=== PATIENT | female | born 1990 | race Two or more races ===

== ENCOUNTER 2018-10-03 16:48 | Emergency (ER) | payer SELFPAY ==
[~2018-10-03] VITALS: Ht 167.6 cm; Wt 53.5 kg
[2018-10-03] MEDS ORDERED: Tetanus/Diptheria/Pertussis IM ONE (17:15)
[2018-10-03] MEDS ORDERED: LET 3ml Soln TOPIC ONE (17:15)
[2018-10-03] MEDS ORDERED: Bacitracin Oint UD TOPIC ONE (17:15)
--- NOTE | 2018-10-03 17:18 | Emergency Room Report ---
History of Present Illness General Chief Complaint: Laceration Source: Patient Present Illness HPI 28-year-old female patient presents the ER complaining of laceration on left ankle. Reports that she was shaving 4 days ago and "cut her skin". Reports bleeding at the time of injury. States well controlled Band-Aid at this time. Reports is not up-to-date on tetanus vaccination. Reports has not used any topical antibiotics. Denies pain with walking. Denies other aggravating or relieving factors. Allergies: Coded Allergies: No Known Allergies (Unverified , 10/03/18) Patient History Past Medical History: see triage record Last Menstrual Period: 09/04/18 Reviewed Nursing Documentation: PMH: Agreed; PSxH: Agreed Nursing Documentation-PMH Past Medical History: No Stated History Review of Systems All Other Systems: negative except mentioned in HPI Physical Exam Vital Signs Date Time Temp Pulse Resp B/P (MAP) Pulse Ox O2 Delivery O2 Flow Rate FiO2 10/03/18 16:56 98.2 91 18 99/72 98 Room Air Sp02 EP Interpretation: reviewed, normal General Appearance: well appearing, no apparent distress, alert, GCS 15, non- toxic Head: normocephalic, atraumatic Eyes: bilateral eye normal inspection, bilateral eye PERRL ENT: hearing grossly normal, normal pharynx, no angioedema, normal voice, uvula midline, moist mucus membranes Respiratory: lungs clear, normal breath sounds, no rhonchi, no respiratory distress, no accessory muscle use, no wheezing, speaking full sentences Cardiovascular #1: regular rate, rhythm, no edema Cardiovascular #2: 2+ dorsalis pedis (R), 2+ dorsalis pedis (L) Musculoskeletal: back normal, digits/nails normal, gait/station normal, normal range of motion, non-tender Psychiatric: mood/affect normal Skin: other - left ankle: superifical 1 cm skin avulsion with skin flap loosely attached at proximal border of wound, no surrounding erythema or edema, no active bleeding Procedures Additional Procedure Procedure Narrative Verbal consent provided by patient. Skin avulsion on left ankle, superficial, 1 cm in size. Wound cleaned and irrigated with saline and Betadine. Topical L ET applied and adequate local anesthesia achieved. Avulsed skin flap debrided. Bacitracin applied. Wound cleaned and dressed following procedure. Patient tolerated procedure well without any complications. Medical Decision Making PA Attestation Dr. Mitchell is my supervising Physician whom patient management has been discussed with. Diagnostic Impression: Primary Impression: Skin avulsion ER Course Pt. presents to the ED c/o laceration on left ankle. Ddx considered but are not limited to laceration, abrasion, skin avulsion, cellulitis. Vital signs: are WNL, pt. is afebrile ER COURSE: Updated tetanus vaccination. Debridement of avulsed skin flap in the ER, see procedure note. Advised patient to keep clean and dry. Apply bacitracin or Neosporin to reduce appearance of scar and prevent infection. No surrounding edema or edema, low suspicion for cellulitis. No laceration of skin requiring suture repair. ER precautions given. Advised to monitor for signs of infection. DISCHARGE: At this time pt is stable for d/c to home. Patient is resting comfortably, in no acute distress, nontoxic appearing, talking without difficulty. Patient to take medications as instructed Will provide with patient care instructions and any necessary prescriptions. Care plan and follow-up instructions provided. Patient instructed to follow-up with primary care provider in 3 - 5 days. Patient questions asked and answered. Patient reports understanding and agreement to treatment plan. ER precautions given. Patient instructed to return to ER immediately for any new or worsening of symptoms including but not limited to increasing SOB, persistent fever, chest pain, intractable vomiting. - Please note that this Emergency Department Report was dictated using [employer] media representative technology software, occasionally this can lead to erroneous entry secondary to interpretation by the dictation equipment. Last Vital Signs Date Time Temp Pulse Resp B/P (MAP) Pulse Ox O2 Delivery O2 Flow Rate FiO2 10/03/18 16:56 98.2 91 18 99/72 98 Room Air Status: improved Disposition: HOME, SELF-CARE Condition: Stable Scripts Bacitracin/Polymyxin B Sulfate (BACITRACIN-POLYMYXIN OINTMENT) 28.35 Gm Oint...g. 1 APPLIC TP BID, #28 GM Prov: Ramon Zhang 10/03/18 Patient Instructions: Abrasion, [id number], Skin Tear Care, [id number] Additional Instructions: Followup with primary care provider in 3 -5 days. Keep clean and dry. Apply bacitracin or Neosporin to help reduce appearance of scar. Take medications as directed. Patient questions asked and answered. ER precautions given, patient instructed to return to ER immediately for any new or worsening of symptoms. Ramon Zhang Oct 03, 2018 17:18
[2018-10-03] MEDS ORDERED: BACITRACIN-P28.35 GM TP (17:30)
[2018-10-03 18:15] VITALS: BP 99/72
[2018-10-03 18:17] VITALS: BP 99/72
--- NOTE | 2018-10-03 18:17 | NUR ---
ER DISCHARGE NOTE: Patient is cleared to be discharged per ERMD, pt is aox4, on room air, with stable vital signs. pt was given dc and prescription instructions, pt was able to verbalize understanding, pt is able to ambulate with steady gait. pt took all belongings.
== END 2018-10-03 18:19 | disposition home or self-care (01) ==
LOC: EMR 17:29
DX: S91.312A Laceration without foreign body, left foot, initial encounter (principal); Z23 Encounter for immunization; W26.9XXA Contact with unspecified sharp object(s), initial encounter; Y92.9 Unspecified place or not applicable
CPT/HCPCS: 90471; 90715; 99283